=== PATIENT | female | born 1965 | race Caucasian/White ===

== ENCOUNTER 2017-02-16 11:26 | Emergency (ER) | payer SELFPAY ==
[~2017-02-16] VITALS: Ht 162.6 cm; Wt 104.3 kg
--- NOTE | 2017-02-16 11:33 | NUR ---
Placed in room 8 . Placed on residential monitor, blood pressure machine and pulse oximeter. To gown for exam. Side rails up. Report given to Low DALTON.
[2017-02-16 11:34] VITALS: BP_SYST 146
--- NOTE | 2017-02-16 11:35 | NUR ---
ER Dr. Urbano at bedside examining patient.
--- NOTE | 2017-02-16 11:40 | NUR ---
Pt c/o persistant shortness of breath and wheezing past few days. Ran out of inhaler. Denies chest pain.
--- NOTE | 2017-02-16 11:43 | NUR ---
RT at bedside for breathing tx.
[2017-02-16] MEDS ORDERED: ALBUTEROL SULFATE 0.083% 2.5 MG/3 ML VIAL.NEB INH ONE (11:45)
[2017-02-16] MEDS ORDERED: methylPREDNISolone SOD SUCC/PF 62.5 MG/ML VIAL IVP ONE (11:45)
--- NOTE | 2017-02-16 12:05 | NUR ---
Pt states that she feels much better after breathing tx.
[2017-02-16] MEDS ORDERED: methylPREDNISolone SOD SUCC/PF 62.5 MG/ML VIAL IM ONE (12:15)
[2017-02-16 12:34] VITALS: BP_SYST 148
--- NOTE | 2017-02-16 12:34 | NUR ---
Patient given written and verbal discharge instructions and verbalizes understanding. ER MD discussed with patient the results and treatment provided. Patient in stable condition. ID arm band removed. IV catheter removed intact and dressing applied, no active bleeding. Rx of albuterol aerosol and albuterol INH given. Patient educated on pain management and to follow up with PMD. Pain Scale 0/10. Opportunity for questions provided and answered.
== END 2017-02-16 12:34 | disposition home or self-care (01) ==
LOC: SED 11:26
DX: J45.901 Unspecified asthma with (acute) exacerbation (principal); C56.9 Malignant neoplasm of unspecified ovary; F17.210 Nicotine dependence, cigarettes, uncomplicated; Z88.0 Allergy status to penicillin; Z88.1 Allergy status to other antibiotic agents
CPT/HCPCS: 94640; 96372; 99283; J2930